=== PATIENT | male | born 1995 | race Caucasian/White ===

== ENCOUNTER → 2021-03-29 | Outpatient (CLI) | payer BC ==
[2021-03-29 19:47] LABS: BASO % 0.5 % (0.0-2.0); EOS # 0.1 (0.0-0.7); EOS % 1.3 % (0-4.0); GRAN # 5.1 (1.4-6.5); GRAN % 64.7 % (42.2-75.2); HEMATOCRIT 40.6 % (42.0-52.0); HEMOGLOBIN 13.7 g/dl (13.5-18.0); LYMPH # 1.5 (1.2-3.4); MEAN CELL VOLUME 87 fl (80.0-100.0); MEAN CORPUSCULAR HEMOGLOBIN 29 pg (27.0-31.0); MEAN CORPUSCULAR HGB CONC 34 g/dl (33.0-37.0); MEAN PLATELET VOLUME 10.2 fl (7.4-10.4); MONO # 1.1 (0.1-0.6); MONO % 14.2 % (1.7-9.3); PLATELET COUNT 290 K/mm3 (130-400); RED BLOOD COUNT 4.69 M/mm3 (4.20-5.60); REDCELL DISTRIBUTION WIDTH-CV 11.9 % (11.5-14.5)
[2021-03-29 20:11] LABS: ERYTHROCYTE SEDIMENTATION RATE 18 mm/hr (0-15)
[2021-03-31 13:41] LABS: ANA SCREEN with REFLEX Negative (Negative)
== END ==
LOC: COL.ER 18:16
PROVIDERS: Physician Assistant
DX: M02.30 Reiter's disease, unspecified site (principal)

== ENCOUNTER → 2021-04-01 | Outpatient (CLI) | payer BC | LOC: COL.LAB 14:47 | DX: M25.461 Effusion, right knee (principal) ==